=== PATIENT | male | born 1965 | race Caucasian/White ===

== ENCOUNTER 2016-04-11 18:23 | Emergency (ER) | payer OTHER ==
--- NOTE | 2016-04-11 19:44 | ED CLINICAL REPORT ---
Clinical Report - Physicians/Mid Levels [facility] [address] [place] [address] 04/11/2016 18:27 Patient: HAY SOFIA Time Seen: 18:48; initial patient contact, initial documentation, patient care assumed. Arrived- By private vehicle. Historian- patient. HISTORY OF PRESENT ILLNESS Chief Complaint: BACK PAIN and CHRONIC BACK PAIN. Modifying factors- worsened by standing, walking, rotation of the body to the right or left, bending over or lifting. Not relieved by anything. It is described as being severe and in the area of the left lower lumbar spine, lower lumbar spine and right lower lumbar spine and radiating to the right hip and to the left hip. The quality is noted to be "pain". Onset- about 3 days ago and it is still present. No bladder dysfunction, bowel dysfunction, sensory loss or motor loss. Patient notes an injury but denies injury to the head or neck. Mechanism of injury- he was lifting (lifting a tv into car). No other injury. Similar symptoms previously: Chronically, milder. Recent medical care: The patient was seen recently in a clinic. ( went to clinic Monday, given rx pain pills, naprosyn and flexeril 5mg, out of pain meds, flexeril and naprosyn not helping the pain and pain is worse when lying flat so having trouble sleeping). REVIEW OF SYSTEMS No difficulty with urination, urinary frequency, difficulty breathing, chest pain or abdominal pain. No vomiting or diarrhea. All systems otherwise negative, except as recorded above. PAST HISTORY See nurses notes. The patient has had prior back pain. SOCIAL HISTORY Never smoker. No alcohol use or drug use. No recent travel. Is a local resident. FAMILY HISTORY Negative. ADDITIONAL NOTES The nursing notes have been reviewed with agreement regarding the chief complaint, HPI, ROS and patient medications and allergies. PHYSICAL EXAM Vital Signs: 04/11/2016 18:33 BP: 120/95. HR: 88. RR: 17. O2 saturation: 98%. Temp: 98.1 F. Pain level now: 7/10. Have been reviewed as normal and appear to be correct. Appearance: Alert. No acute distress. HEENT: Normal external inspection. Eyes: Pupils equal, round and reactive to light. Neck: Normal inspection. Neck nontender. Painless ROM. CVS: Heart sounds normal. Pulses normal. Respiratory: No respiratory distress. Breath sounds normal. Abdomen: No visible injury. Soft and nontender. Back: No tenderness. Abnormal inspection. No painless ROM. Mildly limited ROM in the back- in the lumbar spine: decreased flexion, extension, right lateral bending, left lateral bending and rotation to the right and left. No muscle spasm in the back, vertebral point tenderness, soft tissue tenderness or CVA tenderness. Skin: Skin warm and dry. Normal skin color. No rash. Normal skin turgor. Extremities: Extremities exhibit normal ROM. Extremities nontender. Neuro: Oriented X 3. Mood/affect normal. No motor deficit. No sensory deficit. PROGRESS AND PROCEDURES Patient counseled in person regarding the patient's stable condition and diagnosis. 19:43. Differential Diagnosis: Above considerations are based on history and physical exam. Differential diagnosis was discussed with patient. Disposition: Discharged home in good and improved condition (19:43). Condition: good and stable. CLINICAL IMPRESSION Acute lumbar strain. INSTRUCTIONS Warnings: GENERAL WARNINGS: Return or contact your physician immediately if your condition worsens or changes unexpectedly, if not improving as expected, or if other problems arise. SPECIFICALLY, return if you develop incontinence of urine (loss of bladder control). Prescription Medications: Diazepam 5 mg: Take 1 tablet orally every 8 hours as needed for muscle spasm. Dispense fifteen (15). No refills. Ultram 50 mg tablets: take 1-2 orally every 6 hours as needed for pain. Dispense twenty (20). No refills. Substitution is permissible. Follow-up: Follow up with a neurologist as scheduled even if well. Summary of care provided to patient. Understanding of the discharge instructions verbalized by patient. (Electronically signed by Libby Banks A.R.N.P. 04/11/2016 21:20)
--- NOTE | 2016-04-11 19:44 | ED ORDER SUMMARY ---
..... Patient: HAY SOFIA OrderSheet [facility] VisitID: [id number] [address] [place] [address] 50y, M Registration Date/Time: 04/11/2016 ORDER SHEET Weight: 97.5 kg (stated) Allergies: None GENERAL ORDERS: MEDICATION ORDERS: Toradol IM 60 mg (NOW) (19:05 04/11/2016 Michael A.R.N.P.) (Ack 19:06 RMarsden R.N.) (19:12 RMarsden R.N.) IV FLUIDS: ORDER SHEET NOTES: [Electronically signed by Ree Lawson R.N. (19:59 04/11/2016)] [Electronically signed by Libby BanksR.N.P. (21:20 04/11/2016)] [Electronically locked/signed by Ree Lawson R.N. (19:59 04/11/2016)]
--- NOTE | 2016-04-11 19:44 | ED NURSING NOTES ---
Clinical Report - Nurses [facility] [address] [place] [address] 04/11/2016 18:27 Patient: HAY SOFIA TRIAGE Triage time 18:33. Acuity: LEVEL 4. Chief Complaint: (pt states he strained his back while lifting a tv into his car.). 18:43 04/11/16. --18:43 Chanell Pillai R.N. 18:33 04/11/16. BP: 120/95 taken on the left arm, while sitting. HR: 88. RR: 17. O2 saturation: 98%. Temp: 98.1 F. Pain level now: 08/15. --18:43 Chanell Pillai R.N. Chief Complaint: (back pain). 18:51 04/11/16. --18:51 Chanell Pillai R.N. Weight: 97.5 kg stated. Height/Length: 73 inches Per Patient. BMI: 28.4. --18:45 Chanell Pillai R.N. Medications Cyclobenzaprine HCl ER Oral. --19:04 Chanell Pillai R.N. Hydrocodone-Ibuprofen Oral. --19:04 Chanell Pillai R.N. Allergies None. --19:05 Chanell Pillai R.N. History Arrived by private vehicle. Historian: patient. Primary physician (Dr. Sanchez). Location of injuries: lower back, left flank and right flank. Occurred at home. ( Monday morning). He has had back pain. He has had numbness (pt states he usually experiences numbness in the back of his thighs when lying down. Since injury, pt states numbness has moved to R and L anterior thigh.). No headache or neck pain. PAST MEDICAL HX: Tetanus status: up-to-date. Immunizations: up-to-date. SOCIAL HX: Never smoker. No alcohol use or drug use. FALL RISK ASSESSMENT: Fall risk assessment completed. No fall risk identified. NUTRITIONAL RISK ASSESSMENT: The nutritional risk assessment revealed no deficiencies. FUNCTIONAL ASSESSMENT: Functional assessment: no impairments noted. LEARNING NEEDS ASSESSMENT: The learning needs assessment revealed no barriers. SKIN INTEGRITY ASSESSMENT: Skin integrity risk assessment completed. No skin integrity risk identified. --18:43 Chanell Pillai R.N. Interventions ID band on patient. To treatment room. --18:43 Chanell Pillai R.N. PHYSICAL ASSESSMENT 18:44 04/11/16. Ambulatory to room. GENERAL / NEURO / PSYCH: Alert. Oriented X 4. Appears in no acute distress. RESPIRATORY: Respirations not labored. CVS: Pulses within normal limits. Capillary refill less than 2 seconds. EXTREMITIES: Extremities exhibit normal ROM. SKIN: Skin is warm and dry. --18:44 Chanell Pillai R.N. NURSING PROGRESS NOTES 18:45 04/11/16. Call light placed in reach. Side rails up. Bed placed in lowest position. Brakes of bed on. Patient ready for evaluation- chart flagged and notification provided. --18:45 Chanell Pillai R.N. 19:03 04/11/16. Care transferred and report received. --19:03 Ree Lawson R.N. 19:06 04/11/16. Care transferred and report given (VANESA Keenan). --19:06 Chanell Pillai R.N. 19:12 04/11/2016 Toradol (Ketorolac Tromethamine) IM 60 mg given. Given in the right anterior lateral thigh. Allergies verified and confirmed 5 rights. --19:12 Chanell Pillai R.N. DISPOSITION / DISCHARGE Condition at departure: improved. No learning barriers present. Discharge instructions provided and reviewed with the patient. Reviewed medication(s) side effects, precautions, dosing and course information. Prescription(s) given to the patient. Activity restrictions reviewed. Patient verbalized understanding. Written instructions provided in [place]. The patient was discharged by the nurse practitioner. He was discharged home and accompanied by spouse. He left the Emergency Department ambulatory and via private vehicle. Spouse driving. FALL RISK ASSESSMENT: Fall risk assessment completed. No fall risk identified. --19:51 Americo Manuel 19:50 04/11/16. BP: 136/94. HR: 76. RR: 16. O2 saturation: 100%. Temp: deferred. Pain level now: 04/15. --19:51 Americo Manuel Departure time: :51 19:51. --19:52 Americo Manuel Locked/Released at 04/11/2016 19:59 by Ree Lawson R.N.
--- NOTE | 2016-04-11 19:44 | ED NURSING NOTES ---
Clinical Report - Nurses [facility] [address] [place] [address] 04/11/2016 18:27 Patient: HAY SOFIA TRIAGE Triage time 18:33. Acuity: LEVEL 4. Chief Complaint: (pt states he strained his back while lifting a tv into his car.). 18:43 04/11/16. --18:43 Chanell Pillai R.N. 18:33 04/11/16. BP: 120/95 taken on the left arm, while sitting. HR: 88. RR: 17. O2 saturation: 98%. Temp: 98.1 F. Pain level now: 08/15. --18:43 Chanell Pillai R.N. Chief Complaint: (back pain). 18:51 04/11/16. --18:51 Chanell Pillai R.N. Weight: 97.5 kg stated. Height/Length: 73 inches Per Patient. BMI: 28.4. --18:45 Chanell Pillai R.N. Medications Cyclobenzaprine HCl ER Oral. --19:04 Chanell Pillai R.N. Hydrocodone-Ibuprofen Oral. --19:04 Chanell Pillai R.N. Allergies None. --19:05 Chanell Pillai R.N. History Arrived by private vehicle. Historian: patient. Primary physician (Dr. Sanchez). Location of injuries: lower back, left flank and right flank. Occurred at home. ( Monday morning). He has had back pain. He has had numbness (pt states he usually experiences numbness in the back of his thighs when lying down. Since injury, pt states numbness has moved to R and L anterior thigh.). No headache or neck pain. PAST MEDICAL HX: Tetanus status: up-to-date. Immunizations: up-to-date. SOCIAL HX: Never smoker. No alcohol use or drug use. FALL RISK ASSESSMENT: Fall risk assessment completed. No fall risk identified. NUTRITIONAL RISK ASSESSMENT: The nutritional risk assessment revealed no deficiencies. FUNCTIONAL ASSESSMENT: Functional assessment: no impairments noted. LEARNING NEEDS ASSESSMENT: The learning needs assessment revealed no barriers. SKIN INTEGRITY ASSESSMENT: Skin integrity risk assessment completed. No skin integrity risk identified. --18:43 Chanell Pillai R.N. Interventions ID band on patient. To treatment room. --18:43 Chanell Pillai R.N. PHYSICAL ASSESSMENT 18:44 04/11/16. Ambulatory to room. GENERAL / NEURO / PSYCH: Alert. Oriented X 4. Appears in no acute distress. RESPIRATORY: Respirations not labored. CVS: Pulses within normal limits. Capillary refill less than 2 seconds. EXTREMITIES: Extremities exhibit normal ROM. SKIN: Skin is warm and dry. --18:44 Chanell Pillai R.N. NURSING PROGRESS NOTES 18:45 04/11/16. Call light placed in reach. Side rails up. Bed placed in lowest position. Brakes of bed on. Patient ready for evaluation- chart flagged and notification provided. --18:45 Chanell Pillai R.N. 19:03 04/11/16. Care transferred and report received. --19:03 Ree Lawson R.N. 19:06 04/11/16. Care transferred and report given (VANESA Keenan). --19:06 Chanell Pillai R.N. 19:12 04/11/2016 Toradol (Ketorolac Tromethamine) IM 60 mg given. Given in the right anterior lateral thigh. Allergies verified and confirmed 5 rights. --19:12 Chanell Pillai R.N. DISPOSITION / DISCHARGE Condition at departure: improved. No learning barriers present. Discharge instructions provided and reviewed with the patient. Reviewed medication(s) side effects, precautions, dosing and course information. Prescription(s) given to the patient. Activity restrictions reviewed. Patient verbalized understanding. Written instructions provided in [place]. The patient was discharged by the nurse practitioner. He was discharged home and accompanied by spouse. He left the Emergency Department ambulatory and via private vehicle. Spouse driving. FALL RISK ASSESSMENT: Fall risk assessment completed. No fall risk identified. --19:51 Americo Manuel 19:50 04/11/16. BP: 136/94. HR: 76. RR: 16. O2 saturation: 100%. Temp: deferred. Pain level now: 04/15. --19:51 Americo Manuel Departure time: :51 19:51. --19:52 Americo Manuel Locked/Released at 04/11/2016 19:59 by Ree Lawson R.N.
--- NOTE | 2016-04-11 19:44 | ED ORDER SUMMARY ---
..... Patient: HAY SOFIA OrderSheet [facility] VisitID: [id number] [address] [place] [address] 50y, M Registration Date/Time: 04/11/2016 ORDER SHEET Weight: 97.5 kg (stated) Allergies: None GENERAL ORDERS: MEDICATION ORDERS: Toradol IM 60 mg (NOW) (19:05 04/11/2016 Michael A.R.N.P.) (Ack 19:06 RMarsden R.N.) (19:12 RMarsden R.N.) IV FLUIDS: ORDER SHEET NOTES: [Electronically signed by Ree Lawson R.N. (19:59 04/11/2016)] [Electronically signed by Libby BanksR.N.P. (21:20 04/11/2016)] [Electronically locked/signed by Ree Lawson R.N. (19:59 04/11/2016)]
--- NOTE | 2016-04-11 21:21 | ED DISCHARGE INSTRUCTIONS ---
Patient: HAY SOFIA General Instructions [facility] VisitID: [id number] [place] [address] 50y, M Registration Date/Time: 04/11/2016 Acute lumbar strain. INSTRUCTIONS Warnings: GENERAL WARNINGS: Return or contact your physician immediately if your condition worsens or changes unexpectedly, if not improving as expected, or if other problems arise. SPECIFICALLY, return if you develop incontinence of urine (loss of bladder control). Prescription Medications: Diazepam 5 mg: Take 1 tablet orally every 8 hours as needed for muscle spasm. Dispense fifteen (15). No refills. Ultram 50 mg tablets: take 1-2 orally every 6 hours as needed for pain. Dispense twenty (20). No refills. Substitution is permissible. Follow-up: Follow up with a neurologist as scheduled even if well. Summary of care provided to patient. Understanding of the discharge instructions verbalized by patient. ADDITIONAL INFORMATION Back Pain [Acute Or Chronic] Back pain is usually caused by an injury to the muscles or ligaments of the spine. Sometimes the disks that separate each bone in the spine may bulge and cause pain by pressing on a nearby nerve. Back pain may also appear after a sudden twisting/bending force (such as in a car accident), after a simple awkward movement, or lifting something heavy with poor body positioning. In either case, muscle spasm is often present and adds to the pain. Acute back pain usually gets better in one to two weeks. Back pain related to disk disease, arthritis in the spinal joints or spinal stenosis (narrowing of the spinal canal) can become chronic and last for months or years. Unless you had a physical injury (for example, a car accident or fall) X-rays are usually not ordered for the initial evaluation of back pain. If pain continues and does not respond to medical treatment, x-rays and other tests may be performed at a later time. Home Care: You may need to stay in bed the first few days. But, as soon as possible, begin sitting or walking to avoid problems with prolonged bed rest (muscle weakness, worsening back stiffness and pain, blood clots in the legs). When in bed, try to find a position of comfort. A firm mattress is best. Try lying flat on your back with pillows under your knees. You can also try lying on your side with your knees bent up towards your chest and a pillow between your knees. Avoid prolonged sitting. This puts more stress on the lower back than standing or walking. During the first two days after injury, apply an ICE PACK to the painful area for 20 minutes every 2-4 hours. This will reduce swelling and pain. HEAT (hot shower, hot bath or heating pad) works well for muscle spasm. You can start with ice, then switch to heat after two days. Some patients feel best alternating ice and heat treatments. Use the one method that feels the best to you. You may use acetaminophen (Tylenol) or ibuprofen (Motrin, Advil) to control pain, unless another pain medicine was prescribed. [NOTE: If you have chronic liver or kidney disease or ever had a stomach ulcer or GI bleeding, talk with your doctor before using these medicines.] Be aware of safe lifting methods and do not lift anything over 15 pounds until all the pain is gone. Follow Up with your doctor or this facility if your symptoms do not start to improve after one week. Physical therapy may be needed. [NOTE: If X-rays were taken, they will be reviewed by a radiologist. You will be notified of any new findings that may affect your care.] Get Prompt Medical Attention if any of the following occur: Pain becomes worse or spreads to your legs Weakness or numbness in one or both legs Loss of bowel or bladder control Numbness in the groin or genital area Sciatica Sciatica ("Lumbar Radiculopathy") causes a pain that spreads from the lower back down into the buttock, hip and leg. Sometimes leg pain can occur without any back pain. Sciatica is due to irritation or pressure on a spinal nerve as it comes out of the spinal canal. This is most often due to a bulge or rupture of a nearby spinal disk (the cartilage cushion between each spinal bone), which presses on a nearby nerve. Other causes include spinal stenosis (narrowing of the spinal canal) and spasm of the pyriform muscle (a muscle in the buttocks that the sciatic nerve passes through). Sciatica may begin after a sudden twisting/bending force (such as in a car accident), or sometimes after a simple awkward movement. In either case, muscle spasm is commonly present and contributes to the pain. The diagnosis of sciatica is made from the symptoms and physical exam. Unless you had a physical injury (such as a car accident or fall), X-rays are usually not ordered for the initial evaluation of sciatica because the nerves and disks cannot be seen on an x-ray. If signs of a compressed nerve are present (for example, loss of tendon reflex or strength in the leg), an MRI (magnetic resonance imaging) scan will need to be scheduled as an outpatient. Most sciatica (80-90%) gets better with medicine, exercise, physical therapy. If symptoms continue after at least three months of medical treatment, surgery may be considered. Home Care: You may need to stay in bed the first few days. But, as soon as possible, begin sitting or walking to avoid problems with prolonged bed rest. When in bed, try to find a position of comfort. A firm mattress is best. Try lying flat on your back with pillows under your knees. You can also try lying on your side with your knees bent up towards your chest and a pillow between your knees. Avoid prolonged sitting. This puts more stress on the lower back than standing or walking. Some persons find relief with heat (hot shower, hot bath or heating pad) and massage, while others prefer cold packs (crushed or cubed ice in a plastic bag, wrapped in a towel). Try both and use the method that feels best for 20 minutes several times a day. You may use acetaminophen (Tylenol) or ibuprofen (Motrin, Advil) to control pain, unless another pain medicine was prescribed. [ NOTE: If you have chronic liver or kidney disease or ever had a stomach ulcer or GI bleeding, talk with your doctor before using these medicines.] Be aware of safe lifting methods and do not lift anything over 15 pounds until all the pain is gone. Follow Up with your doctor or this facility if your symptoms do not start to improve after one week. Physical therapy or further testing may be needed. [NOTE: If X-rays were taken, they will be reviewed by a radiologist. You will be notified of any new findings that may affect your care.] Get Prompt Medical Attention if any of the following occur: Pain becomes worse, not controlled by the prescribed medicine Weakness or numbness in one or both legs Numbness in the groin, genital area Loss of bowel or bladder control Diazepam Oral tablet What is this medicine? DIAZEPAM (dye AZ e emiliana) is a benzodiazepine. It is used to treat anxiety and nervousness. It also can help treat alcohol withdrawal, relax muscles, and treat certain types of seizures. How should I use this medicine? Take this medicine by mouth with a glass of water. Follow the directions on the prescription label. If this medicine upsets your stomach, take it with food or milk. Take your doses at regular intervals. Do not take your medicine more often than directed. If you have been taking this medicine regularly for some time, do not suddenly stop taking it. You must gradually reduce the dose or you may get severe side effects. Ask your doctor or health rn transitional care for advice. Even after you stop taking this medicine it can still affect your body for several days. Talk to your neurology director regarding the use of this medicine in children. Special care may be needed. What side effects may I notice from receiving this medicine? Side effects that you should report to your doctor or health rn transitional care as soon as possible: allergic reactions like skin rash, itching or hives, swelling of the face, lips, or tongue angry, confused, depressed, other mood changes breathing problems feeling faint or lightheaded, falls muscle cramps problems with balance, talking, walking restlessness tremors trouble passing urine or change in the amount of urine unusually weak or tired Side effects that usually do not require medical attention (report to your doctor or health rn transitional care if they continue or are bothersome): difficulty sleeping, nightmares dizziness, drowsiness, clumsiness, or unsteadiness, a hangover effect headache nausea, vomiting What may interact with this medicine? cimetidine grapefruit juice herbal or dietary supplements like kava kava, melatonin, Gomez's Wort, or valerian medicines for anxiety or sleeping problems, like alprazolam, lorazepam, or triazolam medicines for depression, mental problems or psychiatric disturbances medicines for HIV infection or AIDS prescription pain medicines rifampin, rifapentine, or rifabutin some medicines for seizures like carbamazepine, phenobarbital, phenytoin, or primidone What if I miss a dose? If you miss a dose, take it as soon as you can. If it is almost time for your next dose, take only that dose. Do not take double or extra doses. Where should I keep my medicine? Keep out of the reach of children. This medicine can be abused. Keep your medicine in a safe place to protect it from theft. Do not share this medicine with anyone. Selling or giving away this medicine is dangerous and against the law. Store at room temperature between 15 and 30 degrees C (59 and 86 degrees F). Protect from light. Keep container tightly closed. Throw away any unused medicine after the expiration date. What should I tell my health care provider before I take this medicine? They need to know if you have any of these conditions an alcohol or drug abuse problem bipolar disorder, depression, psychosis or other mental health condition glaucoma kidney or liver disease lung or breathing disease myasthenia gravis Parkinson's disease seizures or a history of seizures suicidal thoughts an unusual or allergic reaction to diazepam, other benzodiazepines, foods, dyes, or preservatives or trying to get breast-feeding What should I watch for while using this medicine? Visit your doctor or health rn transitional care for regular checks on your progress. Your body can become dependent on this medicine. Ask your doctor or health rn transitional care if you still need to take it. You may get drowsy or dizzy. Do not drive, use machinery, or do anything that needs mental alertness until you know how this medicine affects you. To reduce the risk of dizzy and fainting spells, do not stand or sit up quickly, especially if you are an older patient. Alcohol may increase dizziness and drowsiness. Avoid alcoholic drinks. Do not treat yourself for coughs, colds or allergies without asking your doctor or health rn transitional care for advice. Some ingredients can increase possible side effects. Tramadol Hydrochloride Oral tablet What is this medicine? TRAMADOL (TRA ma dole) is a pain reliever. It is used to treat moderate to severe pain in adults. How should I use this medicine? Take this medicine by mouth with a full glass of water. Follow the directions on the prescription label. If the medicine upsets your stomach, take it with food or milk. Do not take more medicine than you are told to take. Talk to your neurology director regarding the use of this medicine in children. Special care may be needed. What side effects may I notice from receiving this medicine? Side effects that you should report to your doctor or health rn transitional care as soon as possible: allergic reactions like skin rash, itching or hives, swelling of the face, lips, or tongue breathing difficulties, wheezing confusion itching light headedness or fainting spells redness, blistering, peeling or loosening of the skin, including inside the mouth seizures Side effects that usually do not require medical attention (report to your doctor or health rn transitional care if they continue or are bothersome): constipation dizziness drowsiness headache nausea, vomiting What may interact with this medicine? Do not take this medicine with any of the following medications: MAOIs like Carbex, Eldepryl, Marplan, Nardil, and Parnate This medicine may also interact with the following medications: alcohol or medicines that contain alcohol antihistamines benzodiazepines bupropion carbamazepine or oxcarbazepine clozapine cyclobenzaprine digoxin furazolidone linezolid medicines for depression, anxiety, or psychotic disturbances medicines for migraine headache like almotriptan, eletriptan, frovatriptan, naratriptan, rizatriptan, sumatriptan, zolmitriptan medicines for pain like pentazocine, buprenorphine, butorphanol, meperidine, nalbuphine, and propoxyphene medicines for sleep muscle relaxants naltrexone phenobarbital phenothiazines like perphenazine, thioridazine, chlorpromazine, mesoridazine, fluphenazine, prochlorperazine, promazine, and trifluoperazine procarbazine warfarin What if I miss a dose? If you miss a dose, take it as soon as you can. If it is almost time for your next dose, take only that dose. Do not take double or extra doses. Where should I keep my medicine? Keep out of the reach of children. Store at room temperature between 15 and 30 degrees C (59 and 86 degrees F). Keep container tightly closed. Throw away any unused medicine after the expiration date. What should I tell my health care provider before I take this medicine? They need to know if you have any of these conditions: brain tumor depression drug abuse or addiction head injury if you frequently drink alcohol containing drinks kidney disease or trouble passing urine liver disease lung disease, asthma, or breathing problems seizures or epilepsy suicidal thoughts, plans, or attempt; a previous suicide attempt by you or a family member an unusual or allergic reaction to tramadol, codeine, other medicines, foods, dyes, or preservatives or trying to get breast-feeding What should I watch for while using this medicine? Tell your doctor or health rn transitional care if your pain does not go away, if it gets worse, or if you have new or a different type of pain. You may develop tolerance to the medicine. Tolerance means that you will need a higher dose of the medicine for pain relief. Tolerance is normal and is expected if you take this medicine for a long time. Do not suddenly stop taking your medicine because you may develop a severe reaction. Your body becomes used to the medicine. This does NOT mean you are addicted. Addiction is a behavior related to getting and using a drug for a non-medical reason. If you have pain, you have a medical reason to take pain medicine. Your doctor will tell you how much medicine to take. If your doctor wants you to stop the medicine, the dose will be slowly lowered over time to avoid any side effects. You may get drowsy or dizzy. Do not drive, use machinery, or do anything that needs mental alertness until you know how this medicine affects you. Do not stand or sit up quickly, especially if you are an older patient. This reduces the risk of dizzy or fainting spells. Alcohol can increase or decrease the effects of this medicine. Avoid alcoholic drinks. You may have constipation. Try to have a bowel movement at least every 2 to 3 days. If you do not have a bowel movement for 3 days, call your doctor or health rn transitional care. Your mouth may get dry. Chewing sugarless gum or sucking hard candy, and drinking plenty of water may help. Contact your doctor if the problem does not go away or is severe. You have been given the following additional information: Back Pain (Acute Or Chronic) Back Pain W/ Sciatica Diazepam Oral tablet Tramadol Hydrochloride Oral tablet (Electronically signed by Libby Banks A.R.N.P. 04/11/2016 21:20)
--- NOTE | 2016-04-11 21:21 | ED MAR SUMMARY ---
..... Medication Administration Record [facility] [address] [place] [address] Patient: HAY SOFIA Visit ID: [id number] 50y, M Weight: 97.5 kg Height/Length: 73 in BMI: 28.4 ALLERGIES: None Given 19:12 04/11/2016 Chanell Pillai R.N. Medication Administered: TORADOL [IM] (KETOROLAC TROMETHAMINE), Dose: 60 mg IM. Medication Ordered: Toradol IM 60 mg (NOW).
--- NOTE | 2016-04-11 21:21 | ED MED RECONCILIATION SUMMARY ---
Patient: HAY SOFIA Medication Reconciliation Report [facility] VisitID: [id number] [address] [place] [address] 50y, M Registration Date/Time: 04/11/2016 Weight: 97.5 kg Height/Length: 73 in. BMI: 28.4 ALLERGIES: None The patient's Home Medications are listed below: THE FOLLOWING MEDICATIONS NEED TO BE RECONCILED: Cyclobenzaprine HCl ER Oral Hydrocodone-Ibuprofen Oral The source(s) of the original Home Medication information: Not obtained. The following Medications were given to the patient in the Emergency Department: Toradol [IM] IM 60 mg, administered: 04/11/2016 7:12:00 PM The following Medications were prescribed to the patient: Diazepam 5 mg: Take 1 tablet orally every 8 hours as needed for muscle spasm. Dispense fifteen (15). No refills. -- Libby Banks, aKri.R.N.P. Ultram 50 mg tablets: take 1-2 orally every 6 hours as needed for pain. Dispense twenty (20). No refills. Substitution is permissible. -- Libby Banks A.R.N.P.
--- NOTE | 2016-04-11 21:21 | ED MED RECONCILIATION SUMMARY ---
Patient: HAY SOFIA Medication Reconciliation Report [facility] VisitID: [id number] [address] [place] [address] 50y, M Registration Date/Time: 04/11/2016 Weight: 97.5 kg Height/Length: 73 in. BMI: 28.4 ALLERGIES: None The patient's Home Medications are listed below: THE FOLLOWING MEDICATIONS NEED TO BE RECONCILED: Cyclobenzaprine HCl ER Oral Hydrocodone-Ibuprofen Oral The source(s) of the original Home Medication information: Not obtained. The following Medications were given to the patient in the Emergency Department: Toradol [IM] IM 60 mg, administered: 04/11/2016 7:12:00 PM The following Medications were prescribed to the patient: Diazepam 5 mg: Take 1 tablet orally every 8 hours as needed for muscle spasm. Dispense fifteen (15). No refills. -- Libby Banks, Kari.R.N.P. Ultram 50 mg tablets: take 1-2 orally every 6 hours as needed for pain. Dispense twenty (20). No refills. Substitution is permissible. -- Libby Banks A.R.N.P.
--- NOTE | 2016-04-11 21:21 | ED MAR SUMMARY ---
..... Medication Administration Record [facility] [address] [place] [address] Patient: HAY SOFIA Visit ID: [id number] 50y, M Weight: 97.5 kg Height/Length: 73 in BMI: 28.4 ALLERGIES: None Given 19:12 04/11/2016 Chanell Pillai R.N. Medication Administered: TORADOL [IM] (KETOROLAC TROMETHAMINE), Dose: 60 mg IM. Medication Ordered: Toradol IM 60 mg (NOW).
== END 2016-04-11 19:55 ==
LOC: ED SRH 18:23
DX: S39.012A Strain of muscle, fascia and tendon of lower back, initial encounter (principal); X58.XXXA Exposure to other specified factors, initial encounter; Y93.9 Activity, unspecified; Y92.9 Unspecified place or not applicable; Y99.9 Unspecified external cause status